=== PATIENT | female | born 1970 | race Caucasian/White ===

== ENCOUNTER 2018-10-13 12:00 | Outpatient (CLI) | payer OTHER ==
[~2018-10-13 12:00] MED LIST: DILANTIN100 MG PO; FIORICET-COD 51 EACH PO; IBUPROFEN800 MG PO; PAROXETINE HCL10 MG PO; PERCOCET 10/3251 TA1 PO; ZANAFLEX4 MG PO
== END 2018-10-13 12:30 | disposition home or self-care (01) ==
LOC: D.MAMMO 12:00
PROVIDERS: ATTEND Family Medicine
DX: Z12.31 Encounter for screening mammogram for malignant neoplasm of breast (principal)